=== PATIENT | female | born 2000 | race Caucasian/White ===

== ENCOUNTER 2021-06-28 15:11 | Emergency (ER) | payer SELFPAY ==
[~2021-06-28] VITALS: Ht 172.7 cm; Wt 79.4 kg
[2021-06-28 15:24] VITALS: BP 113/76
--- NOTE | 2021-06-28 15:32 | NUR ---
MARTA. HANDED ON URINE CUP.
[2021-06-28] MEDS ORDERED: cefTRIAXone 500 MG in LIDOCAINE MPF 1% 1 ML IM ONE (16:45)
[2021-06-28] MEDS ORDERED: FLUC150T PO (16:45)
[2021-06-28] MEDS ORDERED: DOXY-690 PO (16:45)
--- NOTE | 2021-06-28 16:50 | NUR ---
20 YO FEMALE C/O YELLOWISH VAGINAL DISCHARGE X 3 DAYS. PT WANTS TO CHECK STD TEST. PT STATES PAIN UPON URINATION. DENIES ANY BLEEDING. PMH: DM TYPE 1 MED : INSULIN
[2021-06-28] MEDS ORDERED: cefTRIAXone 500 MG VIAL ONE (16:52)
[2021-06-28] MEDS ORDERED: LIDOCAINE MPF 1% 5 ML ONE (16:52)
[2021-06-28 17:29] VITALS: BP 116/78
--- NOTE | 2021-06-28 17:29 | NUR ---
Patient discharged with v/s stable. Written and verbal after care instructions given and explained. Patient alert, oriented and verbalized understanding of instructions. Ambulatory with steady gait. All questions addressed prior to discharge. ID band removed. Patient advised to follow up with PMD. Rx of VIBRAMYCIN, AND DIFLUCAN given. Patient educated on indication of medication including possible reaction and side effects. Opportunity to ask questions provided and answered.
== END 2021-06-28 17:21 | disposition home or self-care (01) ==
LOC: MED 15:11
DX: B37.9 Candidiasis, unspecified (principal); Z20.2 Contact with and (suspected) exposure to infections with a predominantly sexual mode of transmission; Z79.899 Other long term (current) drug therapy
CPT/HCPCS: 36415; 81002; 81025; 87491; 96372; 99283; J0696; J2001